=== PATIENT | female | born 1990 | race Caucasian/White ===

== ENCOUNTER → 2016-03-15 | Outpatient (CLI) | payer BC ==
[~2016-03-15] MED LIST: ALBINS/ INH; CYAN100020 PO; DOCU-94 PO; EPP3/2 IM; FERR324T PO; FEXO1TAB49 PO; FLUT0.15 NAE; JNLF153028 PO; MAGN400T6 PO; MULT-1028 PO; PANT40TA PO; VNTHFA/IN INH
[2016-03-15 10:04] LABS: ALT/SGPT 29 U/L (12-78); BLOOD UREA NITROGEN 9 mg/dl (7-18); BUN/CREATININE RATIO 9.3 (10-20); CALCIUM 8.9 mg/dl (8.5-10.1); CARBON DIOXIDE 29 mmol/L (21-32); CHLORIDE 105 mmol/L (98-107); GLUCOSE 74 mg/dl (70-99); POTASSIUM 3.5 mmol/L (3.5-5.1); SODIUM 143 mmol/L (136-145)
[2016-03-15 10:14] LABS: ALB/GLOB RATIO 1.3 (0.9-2); ALKALINE PHOSPHATASE 68 U/L (45-117); AST/SGOT 18 U/L (15-37)
[2016-03-21 02:16] LABS: ILGF1 Z SCORE FEMALE 1.2 SD (-2.0 - +2.0); INSULIN LIKE GROWTH FACTOR-I 313 ng/mL (83-456)
== END | disposition home or self-care (01) ==
LOC: C.LAB 08:09
PROVIDERS: ATTEND Internal Medicine Endocrinology, Diabetes & Metabolism
DX: E23.6 Other disorders of pituitary gland (principal); E83.51 Hypocalcemia

== ENCOUNTER → 2016-03-28 | Outpatient (CLI) | payer BC ==
--- NOTE | 2016-03-28 15:15 | DIAGNOSTIC IMAGING REPORT ---
THYROID ULTRASOUND HISTORY: E04.9 Goiter COMPARISON: None. FINDINGS: Right lobe: 5.3 x 1.8 x 1.4 cm. No nodules. Left lobe: 4.6 x 1.3 x 1.5 cm. No nodules. Isthmus: 2 mm in thickness. No nodules. IMPRESSION: Normal thyroid ultrasound. Electronically signed by: Octavio Gan M.D. 03/28/2016 3:13 PM Dictated Date/Time: 03/28/2016 3:13 PM
== END | disposition home or self-care (01) ==
LOC: C.ULTR 14:48
PROVIDERS: ATTEND Internal Medicine Endocrinology, Diabetes & Metabolism
DX: E04.9 Nontoxic goiter, unspecified (principal)

== ENCOUNTER → 2016-06-28 | Outpatient (CLI) | payer BC ==
[2016-06-28 10:38] LABS: PROLACTIN 12.46 ng/mL
[2016-06-28 10:39] LABS: THYROID STIMULATING HORMONE 1.19 uIu/ml (0.300-4.500)
[2016-07-03 22:06] LABS: ILGF1 Z SCORE FEMALE 0.7 SD (-2.0 - +2.0); INSULIN LIKE GROWTH FACTOR-I 254 ng/mL (83-456)
== END | disposition home or self-care (01) ==
LOC: C.LAB 08:14
PROVIDERS: ATTEND Internal Medicine Endocrinology, Diabetes & Metabolism
DX: G40.909 Epilepsy, unspecified, not intractable, without status epilepticus (principal); E23.6 Other disorders of pituitary gland

== ENCOUNTER → 2017-03-10 | Outpatient (CLI) | payer BC | END | disposition home or self-care (01) | LOC: C.PAPS 09:37 | PROVIDERS: ATTEND Obstetrics & Gynecology | DX: Z01.419 Encounter for gynecological examination (general) (routine) without abnormal findings (principal) ==

== ENCOUNTER → 2017-03-17 | Outpatient (CLI) | payer BC ==
--- NOTE | 2017-03-17 14:29 | MAMMOGRAPHY REPORT ---
ULTRASOUND OF BOTH BREASTS: 03/17/2017 CLINICAL HISTORY: 27-year-old woman presents after a recent clinical breast exam performed by her pro vider. She was noted to have bilateral lumpy texture on physical exam with possible masses. The pat roman initially presented to her [facility]HEATER [facility] provider with a complaint of intermittent left lateral breast tenderness that begins approximately 2 weeks before and continues after menses. No skin erythema, th ickening or nipple discharge. No family history of breast cancer. COMPARISON: No prior exams were available for comparison. FINDINGS: Real-time high-resolution sonographic evaluation was performed throughout each breast incl uding the retroareolar aspect of the breasts, and both axillae. No suspicious lymphadenopathy is teodoro ntified within the right or left axilla. The breast parenchymal echotexture is heterogeneousdense. In the 2:00 left breast, 1 cm from the ni pple, there is a parallel hypoechoic solid versus cystic mass without evidence of significant posteri or acoustic enhancement or posterior shadowing. This mass measures 4.1 x 3.0 x 5.3 mm and could repr esent a complicated cyst or solid mass such as a fibroadenoma. Given the benign sonographic features , a short interval follow-up targeted left breast ultrasound is recommended to ensure stability in 6 months. No other discrete solid or cystic mass is identified throughout the left breast on real-time scanning. There is slight differences in the echotexture in the 2:00 left breast, 4 cm from the nip ple in an area of tenderness described by the patient, but no focal or discrete mass is identified. This could simply represent a collapsing cyst or focal duct ectasia. In the 4:00 left breast, 3 cm f rom the nipple, the patient was also tender in this area with real-time ultrasound scanning, without evidence of a discrete solid or cystic mass. in the area of concern While scanning throughout the right breast, a benign intramammary lymph node measuring 5.7 mm is iden tified in the 9:00 axis, 3 cm from the nipple. No other discrete solid or cystic mass is seen. IMPRESSION: ACR-BI-RADS CATEGORY 3: PROBABLY BENIGN - FOLLOW-UP RECOMMENDED 1. There is an indeterminate parallel hypoechoic 5.3 mm mass in the 2:00 left breast, incidentally i dentified on ultrasound, that could represent a complicated cyst or benign solid mass such as a fibro adenoma. The patient is not symptomatic in this location. A short interval follow-up targeted left breast ultrasound is recommended to ensure stability in 6 months. 2. No suspicious targeted sonographic abnormality corresponding to the areas of pain in the 2:00 and 4:00 axes of the left breast, therefore continued clinical follow-up is recommended. 3. No sonographic evidence of malignancy in the right breast. 4. No suspicious right or left axillary lymphadenopathy. These results and recommendations were discussed with the patient at the time of the exam. She tenta tively scheduled a follow-up left breast ultrasound prior to leaving our department. Jacquie Muir M.D. ay/:03/17/2017 12:02:39 Machine Coil Assembler: Dr. Jacquie Muir, [facility] letter sent: Follow Up Recommended 3 BI-RADS Code: ACR-BI-RADS Category 3: Probably Benign
== END | disposition home or self-care (01) ==
LOC: C.MAMM 11:23
PROVIDERS: ATTEND Obstetrics & Gynecology
DX: N63.20 Unspecified lump in the left breast, unspecified quadrant (principal)

== ENCOUNTER 2019-08-31 01:43 | Inpatient (IN) ==
[2019-08-31] MEDS ORDERED: PENICILLIN G POTASSIUM 6 MU in DEXTROSE 5% 250 ML IV STA (02:27)
[2019-08-31] MEDS ORDERED: PENICILLIN G POTASSIUM 3 MU in DEXTROSE 5% 100 ML IV PRN (02:27)
[2019-08-31] MEDS ORDERED: OXYTOCIN 30 UNITS/500 ML BAG IV PRN ×2 (02:27→07:06)
[2019-08-31] MEDS: LACTATED RINGER'S 1,000 ML IV PRN ×3 (02:44→05:57)
[2019-08-31 03:01] LABS: Hematocrit (blood only) 40.4 % (37-47); Hemoglobin 13.5 g/dL (12.0-16.0); Mean Corpuscular Hemoglobin 31.3 pg (25-34); Mean Corpuscular Volume 93.7 fL (80-100); Mean Platelet Volume 11.4 fL (7.4-10.4); Platelet Count 175 K/uL (130-400); RDW Coefficient of Variation 13.3 % (11.5-14.5); RDW Standard Deviation 45.9 fL (36.4-46.3); Red Blood Count 4.31 M/uL (4.2-5.4); White Blood Count 19.99 K/uL (4.8-10.8)
[2019-08-31 03:09] LABS: Mean Corpuscular Hgb Conc 33.4 g/dL (32-36)
[2019-08-31] MEDS ORDERED: BUPIVACAINE 0.25% 30 ML VIAL ONE (03:31)
[2019-08-31] MEDS ORDERED: ePHEDrine sulfate 50 MG/ML AMP ONE (03:31)
[2019-08-31] MEDS ORDERED: fentaNYL citrate 100 MCG/2 ML VIAL ONE (03:31)
[2019-08-31] MEDS ORDERED: fentaNYL 2MCG/ML ROPIV 1.25MG/ML 100 ML BAG EPI ONE (03:32)
[2019-08-31] MEDS ORDERED: NALOXONE HCL 1 MG in SODIUM CHLORIDE 0.9% 1000ML 1,000 ML IV PRN (03:45)
[2019-08-31] MEDS ORDERED: ePHEDrine sulfate 50 MG/ML AMP IV PRN (03:45)
[2019-08-31] MEDS ORDERED: NALBUPHINE HCL INJ 10 MG/ML AMP IV PRN (03:45)
[2019-08-31] MEDS ORDERED: NALOXONE HCL 0.4 MG/1 ML VIAL/CARP IV PRN (03:45)
[2019-08-31] MEDS ORDERED: ONDANSETRON INJ 2 MG/ML 2 ML VIAL IV PRN (03:45)
[2019-08-31] MEDS ORDERED: fentaNYL 2MCG/ML ROPIV 1.25MG/ML 100 ML BAG EPI PRN (03:45)
[2019-08-31] MEDS ORDERED: DiphenhydrAMINE HCL 50 MG/ML VIAL IV PRN (03:45)
--- NOTE | 2019-08-31 03:53 | Anesthesiology Consultation ---
Date of Service August 31, 2019 Assessment & Plan (1) Encounter for pre-operative examination: Chart Review Chart Review: Acceptable Risk for Labor Epidural Consults Requested none ASA ASA2 Proposed Anesthesia Anesthesia Type: Labor Epidural Risk / Benefits Reviewed With: PT / POA / Parent / Guardian, Accepts Plan and Informed Consent Obtained History Height/Weight Height: 5 ft 4 in Weight: 74.843 kg Allergies Allergy/AdvReac Type Severity Reaction Status Date / Time morphine Allergy Severe HIVES - Verified 08/31/19 02:02 [id number] ADMISSION REQUIRING BENADRYL bee venom protein (honey bee) Allergy Unknown UKN Verified 08/31/19 02:02 gluten Allergy Unknown . Verified 08/31/19 02:02 hydrocodone Allergy Unknown HALLUCINATE Verified 08/31/19 02:02 Bee sting Allergy Hives Uncoded 08/31/19 02:02 Wheat Allergy gluten Uncoded 08/31/19 02:02 intolerance Medications Home Medications Medication Instructions Recorded Confirmed Last Taken albuterol sulfate 2 - 4 puff INHALATION Q4H PRN 08/12/18 08/31/19 Unknown docusate sodium 100 mg PO BID 08/31/19 08/31/19 08/30/19 ferrous sulfate 325 mg PO DAILY 08/31/19 08/31/19 08/30/19 fexofenadine-pseudoephedrine 1 tab PO QAM 08/31/19 08/31/19 08/30/19 [Dee-D 24 Hour] lamotrigine 200 mg PO DAILY 08/31/19 08/31/19 08/30/19 lamotrigine 450 mg PO DAILY 08/31/19 08/31/19 08/30/19 vit [id number] 1 tab PO DAILY 08/31/19 08/31/19 08/30/19 [ Vitamin] pyridoxine (vitamin B6) [Vitamin 25 mg PO DAILY 08/31/19 08/31/19 08/30/19 B-6] Active Medications Generic Name Dose Route Start Last Admin Trade Name Freq PRN Reason Stop Dose Admin Lactated Ringer's 1,000 mls @ 125 mls/hr 08/31/19 02:27 08/31/19 02:44 Lr IV 09/02/19 02:26 999 mls/hr .Q8H PRN Administration L&D Protocol Protocol Past Medical History Medical History Asthma Well controlled Chiari malformation type I S/p surgery in 2016- carries small cervical syrinx per neuro Epilepsy Well controlled on Lamictal per neurology note 07/11/19 GERD (gastroesophageal reflux disease) Aggrevated by but stable Gluten intolerance Migraine (Acute) Paroxysmal SVT (supraventricular tachycardia) Intermittent/stable. Followed with cardio in the past- follows PRN at this time. PCOS (polycystic ovarian syndrome) Exercise / Class Metabolic Activity II 4-5 Yardwork/Stairs/Walk up hill Past Family History Family History Father Asthma Thyroid cancer Grandfather Heart disease Grandmother Heart disease Denies family history of Colon cancer Ovarian cancer Breast cancer Past Surgical History Surgical History H/O brain surgery History of esophagogastroduodenoscopy (EGD) Hx of appendectomy [place] teeth removed Past Anesthesia History No Hx of Anesthesia Complications and No Family Hx of Anesthesia Complications History of PONV No Hx of PONV and No Hx of Motion Sickness Social History Smoking Status: Never smoker Hx Alcohol Use: No Hx Substance Use: No substance use type: does not use Physical Exam Vital Signs Last Vital Signs Temp 99.0 F 08/31/19 02:12 Pulse 96 H 08/31/19 03:50 Resp 18 08/31/19 02:12 BP 120/58 L 08/31/19 02:51 Pulse Ox 100 08/31/19 03:50 ENMT Mouth: no dentition abnormality Thyromental Distance: > or= 3.5 Finger Breadths Mallampati Class: II Neck normal visual inspection Respiratory normal respiratory effort Auscultation: lungs clear to auscultation bilaterally Cardiovascular Rate/Rhythm: regular rate and regular rhythm Testing Laboratory Results 08/31/19 02:38
--- NOTE | 2019-08-31 06:05 | History & Physical Report ---
Date of Service August 31, 2019 Assessment & Plan (1) Normal labor: Patient admitted in active labor with spontaneous rupture of membranes. Should be noted she has an Arnold-Chiari moderate malformation however she is okay to have an epidural she is not okay to have a spinal per Dr. Kenyon's notes During her course she has progressed from 2 cm to 4 cm requested epidural post epidural she started to have some significant and recurrent variable decelerations at that time they were nonresponsive to oxygen fluid bolus and repositioning. At that time I initiated an amnioinfusion running normal saline at 200 cc/h and there seemed to be some improvement with this and knee-chest position I cautioned the patient the possibility of section if the variables became recurrent and nonresponsive to resuscitative measures patient seems to understand this and accept this We discussed risks of as well if this was needed section. The patient was counseled to the nature of the procedure including alternatives such as labor. Risks were discussed including bleeding infection injury to bowel bladder ureter vessels and even baby. Deep Vein thrombosis, pulmonary embolus discussed. Breakdown of incision reviewed. Deep vein thrombosis pulmonary embolus hernia and failure of the incision to heal were discussed Patient verbalized understanding of this and was given ample time to ask questions Admission and Anticipated Discharge Date Admission Date: August 31, 2019 History of Present Illness Primary Care Provider: Alex Shukla MD Allergies Allergy/AdvReac Type Severity Reaction Status Date / Time morphine Allergy Severe HIVES - Verified 08/31/19 02:02 [id number] ADMISSION REQUIRING BENADRYL bee venom protein (honey bee) Allergy Unknown UKN Verified 08/31/19 02:02 gluten Allergy Unknown . Verified 08/31/19 02:02 hydrocodone Allergy Unknown HALLUCINATE Verified 08/31/19 02:02 Bee sting Allergy Hives Uncoded 08/31/19 02:02 Wheat Allergy gluten Uncoded 08/31/19 02:02 intolerance Home Medications Home Medications Medication Instructions Recorded Confirmed Type albuterol sulfate 2 - 4 puff INHALATION Q4H PRN 08/12/18 08/31/19 History docusate sodium 100 mg PO BID 08/31/19 08/31/19 History ferrous sulfate 325 mg PO DAILY 08/31/19 08/31/19 History fexofenadine-pseudoephedrine 1 tab PO QAM 08/31/19 08/31/19 History [Dee-D 24 Hour] lamotrigine 200 mg PO DAILY 08/31/19 08/31/19 History lamotrigine 450 mg PO DAILY 08/31/19 08/31/19 History vit no.[id number] 1 tab PO DAILY 08/31/19 08/31/19 History [ Vitamin] pyridoxine (vitamin B6) [Vitamin 25 mg PO DAILY 08/31/19 08/31/19 History B-6] Patient History Medical History Asthma Well controlled Chiari malformation type I S/p surgery in 2016- carries small cervical syrinx per neuro Epilepsy Well controlled on Lamictal per neurology note 07/11/19 GERD (gastroesophageal reflux disease) Aggrevated by but stable Gluten intolerance Migraine (Acute) Paroxysmal SVT (supraventricular tachycardia) Intermittent/stable. Followed with cardio in the past- follows PRN at this time. PCOS (polycystic ovarian syndrome) Surgical History H/O brain surgery History of esophagogastroduodenoscopy (EGD) Hx of appendectomy [place] teeth removed Family History Father Asthma Thyroid cancer Grandfather Heart disease Grandmother Heart disease Denies family history of Colon cancer Ovarian cancer Breast cancer Social History Preferred Language: Turkish Communication Ability: Effective Beliefs That Will Affect Care: Taoist Taoist Beliefs: Christianity marital status: marital status details: Manny (28) [phone] Current Living Situation: Family Current Living Situation Comment: lives with spouse, no pets current occupational status: employed current occupation: [employer] Other Information That Helps Us Care for You: No Feels Safe at Home: Yes Safety Concerns: Feels Safe At This Time Smoking Status: Never smoker Hx Alcohol Use: No Hx Substance Use: No Physical Exam Constitutional: WD/WN, vitals as above Respiratory: normal respiratory effort, lungs clear to auscultation Cardiovascular: RRR, no murmur, no edema Genitourinary: Manual OB Exam: + cervical dilation 4 cm, + cervical effacement 70% and + station -1 Results & Data ([facility]) Vital Signs (Past 12 Hours) Vital Signs Temp Pulse Resp BP Pulse Ox 08/31/19 06:00 92 H 98 08/31/19 05:55 93 H 100 08/31/19 05:50 102 H 98 08/31/19 05:46 90 128/63 08/31/19 05:45 89 100 08/31/19 05:40 80 100 08/31/19 05:36 88 113/59 L 08/31/19 05:35 85 99 08/31/19 05:30 77 100 08/31/19 05:27 80 105/55 L 08/31/19 05:25 89 100 08/31/19 05:20 90 99 08/31/19 05:16 82 120/64 08/31/19 05:15 87 100 08/31/19 05:10 88 99 08/31/19 05:07 86 126/67 08/31/19 05:05 91 H 99 08/31/19 05:00 73 16 99 08/31/19 04:57 81 127/58 L 08/31/19 04:55 79 98 08/31/19 04:50 80 96 08/31/19 04:47 88 133/67 08/31/19 04:45 86 93 08/31/19 04:40 81 95 08/31/19 04:37 82 94 08/31/19 04:36 86 130/70 08/31/19 04:35 85 97 08/31/19 04:30 91 H 96 08/31/19 04:25 77 96 08/31/19 04:24 84 124/55 L 08/31/19 04:21 81 124/60 94 08/31/19 04:20 83 94 08/31/19 04:18 81 126/58 L 08/31/19 04:15 75 132/59 L 98 08/31/19 04:12 77 120/60 08/31/19 04:11 84 115/53 L 08/31/19 04:10 88 98 08/31/19 04:09 86 126/67 08/31/19 04:07 96 H 126/69 08/31/19 04:05 86 126/64 98 08/31/19 04:00 99.0 F 92 H 16 98 08/31/19 03:55 84 98 08/31/19 03:50 96 H 100 08/31/19 03:35 72 97 08/31/19 03:30 82 97 08/31/19 03:25 73 100 08/31/19 03:20 78 100 08/31/19 03:15 70 99 08/31/19 03:10 73 98 08/31/19 03:05 72 100 08/31/19 03:00 73 100 08/31/19 02:55 75 100 08/31/19 02:51 73 120/58 L 08/31/19 02:50 87 100 08/31/19 02:15 75 116/67 08/31/19 02:12 99.0 F 18 Coding Level of Care Code None Diagnoses Normal labor O80; Z37.9
--- NOTE | 2019-08-31 06:21 | Obstetrical Progress Note ---
Date of Service August 31, 2019 Assessment & Plan (1) state: cont current care Subjective Ambulation: ambulating normally Voiding: no voiding problems Diet Tolerance:: regular diet Lochia:: Small Feeding Type:: breast feeding Current Pain Level(1-10): 2 Physical Exam Constitutional WD/WN, vitals as above Respiratory normal respiratory effort, lungs clear to auscultation Cardiovascular RRR, no murmur, no edema Results & Data ([facility]) Vital Signs (Past 12 Hours) Vital Signs Temp Pulse Resp BP Pulse Ox 08/31/19 06:18 88 94/50 L 08/31/19 06:15 93 H 99 08/31/19 06:10 84 99 08/31/19 06:05 87 99 08/31/19 06:00 92 H 98 08/31/19 05:55 93 H 100 08/31/19 05:50 102 H 98 08/31/19 05:46 90 128/63 08/31/19 05:45 89 100 08/31/19 05:40 80 100 08/31/19 05:36 88 113/59 L 08/31/19 05:35 85 99 08/31/19 05:30 77 100 08/31/19 05:27 80 105/55 L 08/31/19 05:25 89 100 08/31/19 05:20 90 99 08/31/19 05:16 82 120/64 08/31/19 05:15 87 100 08/31/19 05:10 88 99 08/31/19 05:07 86 126/67 08/31/19 05:05 91 H 99 08/31/19 05:00 73 16 99 08/31/19 04:57 81 127/58 L 08/31/19 04:55 79 98 08/31/19 04:50 80 96 08/31/19 04:47 88 133/67 08/31/19 04:45 86 93 08/31/19 04:40 81 95 08/31/19 04:37 82 94 08/31/19 04:36 86 130/70 08/31/19 04:35 85 97 08/31/19 04:30 91 H 96 08/31/19 04:25 77 96 08/31/19 04:24 84 124/55 L 08/31/19 04:21 81 124/60 94 08/31/19 04:20 83 94 08/31/19 04:18 81 126/58 L 08/31/19 04:15 75 132/59 L 98 08/31/19 04:12 77 120/60 08/31/19 04:11 84 115/53 L 08/31/19 04:10 88 98 08/31/19 04:09 86 126/67 08/31/19 04:07 96 H 126/69 08/31/19 04:05 86 126/64 98 08/31/19 04:00 99.0 F 92 H 16 98 08/31/19 03:55 84 98 08/31/19 03:50 96 H 100 08/31/19 03:35 72 97 08/31/19 03:30 82 97 08/31/19 03:25 73 100 08/31/19 03:20 78 100 08/31/19 03:15 70 99 08/31/19 03:10 73 98 08/31/19 03:05 72 100 08/31/19 03:00 73 100 08/31/19 02:55 75 100 08/31/19 02:51 73 120/58 L 08/31/19 02:50 87 100 08/31/19 02:15 75 116/67 08/31/19 02:12 99.0 F 18
--- NOTE | 2019-08-31 06:49 | Delivery Summary ---
Vaginal Delivery Summary Date of Service August 31, 2019 Vaginal Delivery Summary Spontaneous vaginal delivery note the patient had recurrent variable decelerations did respond positively to a amnioinfusion her tracing then worsened and I assessed her she went from 4 to 9 cmShe then rapidly progressed to fully dilated at this stage I discussed possibility of vacuum or episiotomy she was making such good progress made a small episiotomy she was tearing already she agreed to this baby was delivered mouth and the nares were suctioned the baby had a triple nuchal cord fluid was clear I clamped the cord and then was able to unwind it from the baby's neck and baby was delivered with gentle traction baby was vigorous cord gases obtained cord blood obtained placenta removed with gentle traction IV Pitocin started small episiotomy pair with 3-0 Vicryl sponge and instrument counts correct estimated blood loss 200 mL
[2019-08-31] MEDS ORDERED: DIPHTHERIA/TETANUS/PERTUSSIS 0.5 ML SYR/VIAL IM ONE (07:06)
[2019-08-31] MEDS ORDERED: BENZOCAINE 20% AER SPR 82.5 GM CAN EXT PRN (07:06)
[2019-08-31] MEDS ORDERED: HYDROCORTISONE ACETATE 25 MG SUPP PR PRN (07:06)
[2019-08-31] MEDS ORDERED: SUPERCREAM 0.870% 15 GM JAR EXT PRN (07:06)
[2019-08-31 07:12] LABS: Base Excess Cord Arterial Bld -2.8 mEq/L (-9-1.8); CO2 Cord Arterial Blood 68 mmHg (39.1-73.5); HCO3 Cord Arterial Blood 27 mmol/L (19.7-28.5); PO2 Cord Arterial Blood 20 mmHg (4.1-31.7); pH Cord Arterial Blood 7.22 (7.1-7.38)
[2019-08-31 07:13] LABS: Base Excess Cord Venous Blood -2.4 mEq/L (-7.7-1.9); Cord Venous Blood HCO3 25 mmol/L (18.4-26.8); Cord Venous Blood PCO2 53 mmHg (30.4-57.2); Cord Venous Blood PO2 30 mmHg (14.1-43.3); Cord Venous Blood pH 7.29 (7.20-7.44); Oxygen Sat Cord Arterial Blood < 60.0 % (<60)
[2019-08-31 07:14] LABS: O2 Saturation Cord Venous Bld < 60.0 % (<68)
[2019-08-31] MEDS: lamoTRIgine 100 MG TAB PO SCH (07:30)
[2019-08-31] MEDS ORDERED: PRENATAL VITAMIN 1 TAB PO SCH (09:00)
--- NOTE | 2019-08-31 09:08 | Anesthesia Procedure Note ---
Date of Service August 31, 2019 Anesthesia Post Epidural Note Vital Signs Vital Signs: Temp Pulse Resp BP Pulse Ox 37.3 C 101 H 16 115/59 L 96 08/31/19 07:00 08/31/19 08:47 08/31/19 07:00 08/31/19 08:47 08/31/19 06:55 Pain Intensity Abdomen: Pain Intensity: 0 Notes Mental Status: alert / awake / arousable and participated in evaluation Nausea / Vomiting: adequately controlled Pain: adequately controlled Airway Patency, RR, SpO2: stable & adequate BP & HR: stable & adequate Hydration State: stable & adequate Neuraxial Anesthesia: was administered and sensory block is resolving Anesthetic Complications: no major complications apparent and Pt Satisfied with anesthetic care Epidural: Removed without complications and With tip intact
[2019-08-31] MEDS: ACETAMINOPHEN 325 MG TAB PO PRN ×2 (09:35→16:07)
[2019-08-31] MEDS: PRENATAL VITAMIN 1 TAB PO SCH (09:38)
[2019-08-31] MEDS: DOCUSATE SODIUM 100 MG CAP PO SCH ×2 (09:38→20:22)
[2019-08-31] MEDS ORDERED: Nursing to Pharmacy Communication SCH (09:45)
[2019-08-31] MEDS: PYRIDOXINE HCL 50 MG TAB PO SCH (09:49)
[2019-08-31] MEDS: FEXOFENADINE 60MG/PSEUDOEPHEDRINE 120MG TAB PO SCH (09:49)
[2019-08-31] MEDS ORDERED: OXYCODONE/ACETAMINOPHEN 5mg/325mg TAB PO PRN (17:46)
[2019-08-31] MEDS: IBUPROFEN 600 MG TAB PO PRN (17:54)
--- NOTE | 2019-08-31 17:54 | Communication Note ---
Date of Service: August 31, 2019 asked by nursing about pain meds for pt who insists she was told by Dr. Kenyon her neurologist that she cannot take motrin due to decreasing effectiveness of l amictal. I had never heard about that issue and confirmed with pharmacist who also has never heard of that interaction. offered her to use percocet prn if the tylenol alone is not helping her as she states, and then advised her via nurse to call Dr. Kenyon office in am to confirm this issue with her lamictal and use of motrin.
[2019-08-31] MEDS ORDERED: lamoTRIgine 100 MG TAB PO SCH ×2 (19:00→21:00)
[2019-09-01 06:06] LABS: Hemoglobin 12.8 g/dL (12.0-16.0); Mean Corpuscular Hemoglobin 31.2 pg (25-34); Mean Corpuscular Volume 97.6 fL (80-100); Mean Platelet Volume 11.3 fL (7.4-10.4); Platelet Count 173 K/uL (130-400); RDW Coefficient of Variation 13.7 % (11.5-14.5); RDW Standard Deviation 49.1 fL (36.4-46.3); White Blood Count 17.53 K/uL (4.8-10.8)
[2019-09-01] MEDS: IBUPROFEN 600 MG TAB PO PRN ×2 (06:47→11:41)
[2019-09-01] MEDS: ACETAMINOPHEN 325 MG TAB PO PRN (06:48)
[2019-09-01] MEDS: lamoTRIgine 100 MG TAB PO SCH (06:50)
--- NOTE | 2019-09-01 07:18 | Obstetrical Progress Note ---
Date of Service September 01, 2019 Assessment & Plan (1) state: 29 yo PPD2 s/p requiring amnioinfusion, hx arnold chiari malformation type 1. - pain well controlled - bottle feeding - uterine cramping, lochia slowing - discharge instructions discussed, questions answered - d/c after baby's circ later today (2) Group B Streptococcus carrier, antepartum: (3) Chiari malformation type I: Admission and Anticipated Discharge Date Admission Date: August 31, 2019 Supervising Physician Co-Signing Physician Notes Resident Physician Supervision Note: I was present with Dr. Hastings during the history and exam. I discussed the case with the resident and agree with the findings and plan as documented in the no te. Any exceptions or clarifications are listed here: Doing well, denies complaints. Bottle feeding. Would like to go home today. VSS, Abd soft ff 2 down nt, Ext nt calves. Plan d/c home, instructions reviewed. f/u 6 wk pp check. Documented By: Anamika Redmond MD, FACOG Subjective No complaints this morning. pain well controlled with motrin and tylenol. lochia decreased. Review of Systems Constitutional: + fatigue; no fever and no chills Respiratory: no cough and no dyspnea Cardiovascular: no chest pain, no syncope, no edema and no calf pain Gastrointestinal: + cramping; no abdominal pain, no nausea, no vomiting, no constipation and no diarrhea/loose stools Genitourinary: no dysuria and no difficulty urinating Neurologic: no headache(s) Physical Exam Constitutional: well developed and well nourished Respiratory: normal respiratory effort; no respiratory distress, no labored breathing and no cough Auscultation: no crackles, no rales, no rhonchi and no wheezes Cardiovascular: Rate/Rhythm: regular rate and regular rhythm Heart Sounds: no gallop, no murmur and no cardiac rub Extremities: no pedal edema Gastrointestinal (Abdomen): Inspection/Auscultation: normal bowel sounds; abdomen not distended Percussion/Palpation: abdomen soft; no guarding Musculoskeletal: no tenderness to palpation of calves bilaterally Genitourinary: Uterus small and firm, palpable on left abdomen below level of umbilicus, no tenderness to palpation. Results & Data ([facility]) Vital Signs (Past 12 Hours) Vital Signs Temp Pulse Resp BP 06/25/20 04:30 37.0 C 77 18 110/70 08/31/19 23:30 36.7 C 68 18 110/61 08/31/19 20:10 36.8 C 92 H 16 116/68 Laboratory Results WBC 17.53 K/uL (4.8-10.8) H 09/01/19 05:52 RBC 4.10 M/uL (4.2-5.4) L 09/01/19 05:52 Hgb 12.8 g/dL (12.0-16.0) 09/01/19 05:52 Hct 40.0 % (37-47) 09/01/19 05:52 MCV 97.6 fL (80-100) 09/01/19 05:52 MCH 31.2 pg (25-34) 09/01/19 05:52 MCHC 32.0 g/dL (32-36) 09/01/19 05:52 RDW Std Deviation 49.1 fL (36.4-46.3) H 09/01/19 05:52 RDW Coeff of Nella 13.7 % (11.5-14.5) 09/01/19 05:52 Plt Count 173 K/uL (130-400) 09/01/19 05:52 MPV 11.3 fL (7.4-10.4) H 09/01/19 05:52 Cord ABG pH 7.22 (7.1-7.38) 08/31/19 06:31 Cord ABG pCO2 68 mmHg (39.1-73.5) 08/31/19 06:31 Cord ABG pO2 20 mmHg (4.1-31.7) 08/31/19 06:31 Cord ABG HCO3 27 mmol/L (19.7-28.5) 08/31/19 06:31 Cord ABG Base Excess -2.8 mEq/L (-9-1.8) 08/31/19 06:31 Cord ABG O2 Sat < 60.0 % (<60) 08/31/19 06:31 Cord VBG pH 7.29 (7.20-7.44) 08/31/19 06:31 Cord VBG pCO2 53 mmHg (30.4-57.2) 08/31/19 06:31 Cord VBG pO2 30 mmHg (14.1-43.3) 08/31/19 06:31 Cord VBG HCO3 25 mmol/L (18.4-26.8) 08/31/19 06:31 Cord VBG Base Excess -2.4 mEq/L (-7.7-1.9) 08/31/19 06:31 Cord VBG O2 Sat < 60.0 % (<68) 08/31/19 06:31 Barometric Pressure 727.7 mm/Hg 08/31/19 06:31 Barometric Pressure 727.7 mm/Hg 08/31/19 06:31 Blood Gas Comments [facility]ANNER 08/31/19 06:31 Blood Gas Comments [facility] 08/31/19 06:31 Resident Activity Tracking Resident Involvement: Resident Care Provided Care Provided: OB Delivery
[2019-09-01] MEDS: PRENATAL VITAMIN 1 TAB PO SCH (08:51)
[2019-09-01] MEDS: DOCUSATE SODIUM 100 MG CAP PO SCH (08:51)
[2019-09-01] MEDS: FEXOFENADINE 60MG/PSEUDOEPHEDRINE 120MG TAB PO SCH (11:42)
[2019-09-01] MEDS: PYRIDOXINE HCL 50 MG TAB PO SCH (11:42)
[2019-09-01] MEDS ORDERED: bisacodyL 5 MG TABEC PO SCH (20:00)
[2019-09-02] MEDS ORDERED: bisacodyL 10 MG SUPP PR PRN (09:00)
== END 2019-09-01 13:35 | disposition home or self-care (01) | DRG 805 ==
LOC: OPB 01:43 → 4S1 01:44 → 4S2 09:50

== ENCOUNTER 2022-09-11 02:07 | Inpatient (IN) ==
[2022-09-11] MEDS ORDERED: LIDOCAINE 1% LOCAL 20 ML VIAL INFIL PRN (02:58)
[2022-09-11] MEDS ORDERED: OXYTOCIN 30 UNITS/500 ML BAG IV PRN ×3 (02:58→17:40)
[2022-09-11] MEDS ORDERED: PENICILLIN G POTASSIUM 6 MU in DEXTROSE 5% 250 ML IV STA (03:10)
[2022-09-11] MEDS: LACTATED RINGER'S 1,000 ML IV PRN ×3 (03:38→10:04)
[2022-09-11 03:42] LABS: Hematocrit (blood only) 39.6 % (37.0-47.0); Hemoglobin 13.6 g/dl (12.0-16.0); Mean Corpuscular Hgb Conc 34.3 g/dL (32.0-36.0); Mean Corpuscular Volume 93.2 fL (80.0-100.0); Mean Platelet Volume 10.9 fL (9.4-12.4); Platelet Count 172 K/uL (130-400); RDW Coefficient of Variation 12.7 % (11.5-14.5); RDW Standard Deviation 43.3 fL (36.4-46.3); Red Blood Count 4.25 M/uL (4.20-5.40)
[2022-09-11] MEDS ORDERED: fentaNYL citrate PF 100 MCG/2 ML VIAL ONE (04:00)
[2022-09-11] MEDS ORDERED: ePHEDrine sulfate 50 MG/ML AMP ONE (04:00)
[2022-09-11] MEDS ORDERED: fentaNYL 2MCG/ML ROPIVACAINE 1.25MG/ML 100 ML BAG EPI ONE (04:01)
[2022-09-11] MEDS ORDERED: SODIUM CHLORIDE 0.9% PF INJ 10 ML VIAL ONE (04:01)
[2022-09-11] MEDS ORDERED: LIDOCAINE 2%/EPINEPHRINE 1:200,000 20 ML PF ONE (04:01)
[2022-09-11] MEDS ORDERED: BUPIVACAINE 0.25% PF 30 ML VIAL ONE (04:01)
[2022-09-11] MEDS ORDERED: ePHEDrine sulfate 50 MG/ML AMP IV PRN (04:10)
[2022-09-11] MEDS ORDERED: BUPIVACAINE 0.25% PF 30 ML VIAL EPI PRN (04:10)
[2022-09-11] MEDS ORDERED: LIDOCAINE 2% MPF LOCAL 5 ML VIAL EPI PRN (04:10)
[2022-09-11] MEDS ORDERED: fentaNYL citrate PF 100 MCG/2 ML VIAL EPI STA (04:10)
[2022-09-11] MEDS ORDERED: SODIUM CHLORIDE 0.9% PF INJ 10 ML VIAL EPI PRN (04:10)
[2022-09-11] MEDS ORDERED: diphenhydrAMINE 50 MG/ML VIAL IV PRN (04:10)
[2022-09-11] MEDS ORDERED: fentaNYL 2MCG/ML ROPIVACAINE 1.25MG/ML 100 ML BAG EPI PRN (04:10)
[2022-09-11] MEDS ORDERED: NALBUPHINE HCL INJ 10 MG/ML AMP IV PRN (04:10)
[2022-09-11] MEDS ORDERED: NALOXONE HCL 1 MG in SODIUM CHLORIDE 0.9% 1000ML 1,000 ML IV PRN (04:10)
[2022-09-11] MEDS ORDERED: SODIUM CHLORIDE 0.9% PF INJ 10 ML VIAL EPI STA (04:10)
[2022-09-11] MEDS ORDERED: LIDOCAINE 2%/EPINEPHRINE 1:200,000 20 ML PF EPI STA (04:10)
[2022-09-11] MEDS ORDERED: fentaNYL citrate PF 100 MCG/2 ML VIAL EPI PRN (04:10)
[2022-09-11] MEDS ORDERED: ROPIVACAINE 0.5% PF 5 MG/ML 20 ML VIAL EPI PRN (04:10)
[2022-09-11] MEDS ORDERED: BUPIVACAINE 0.25% PF 30 ML VIAL EPI STA (04:10)
[2022-09-11] MEDS ORDERED: NALOXONE HCL 0.4 MG/1 ML VIAL/CARP IV PRN (04:10)
--- NOTE | 2022-09-11 04:10 | Anesthesiology Consultation ---
Date of Service September 11, 2022 Assessment & Plan (1) Encounter for pre-operative examination: Chart Review Chart Review: Patient NOT seen in Pre Admission Testing and Acceptable Risk for Labor Epidural Consults Requested none History Height/Weight Height: 5 ft 4 in Weight: 74.843 kg Allergies Allergy/AdvReac Type Severity Reaction Status Date / Time morphine Allergy Severe HIVES - Verified 09/05/22 14:20 [id number] ADMISSION REQUIRING BENADRYL bee venom protein (honey bee) Allergy Unknown UKN Verified 09/05/22 14:20 gluten Allergy Unknown . Verified 09/05/22 14:20 hydrocodone Allergy Unknown HALLUCINATE Verified 09/05/22 14:20 Medications Home Medications Medication Instructions Recorded Confirmed Last Taken ferrous sulfate 325 mg (65 mg 325 mg PO DAILY 08/31/19 09/11/22 09/10/22 19:00 iron) tablet vits no.124-ferrous fum 1 tab PO DAILY 08/31/19 09/11/22 09/10/22 19:00 27 mg iron-folic acid 800 mcg tablet ( Vitamin) pyridoxine (vitamin B6) 25 mg 25 mg PO DAILY 08/31/19 09/11/22 09/10/22 19:00 tablet (Vitamin B-6) magnesium PO 10/03/19 09/05/22 09/10/22 19:00 docusate sodium [Colace Clear] PO 10/12/19 09/05/22 09/10/22 21:00 ipratropium 0.5 mg-albuterol 3 mg 3 ml inhalation BID PRN shortness 03/06/21 09/11/22 Unknown (2.5 mg base)/3 mL nebulization of breath or wheezing #15 mL soln epinephrine 0.3 mg/0.3 mL 0.3 mg (0.3 mL) subcut UD #2 ea 09/06/21 09/11/22 Unknown injection, auto-injector calcium carbonate [Tums] PO PRN heartburn 01/27/22 09/05/22 Unknown lidocaine [Aspercreme (lidocaine)] topical 01/27/22 09/05/22 09/10/22 09:00 ondansetron HCl 4 mg tablet 4 mg PO Q6H PRN nausea and 03/07/22 09/11/22 Unknown vomiting #30 tabs inulin [Fiber Gummies] PO 04/25/22 09/05/22 Unknown lamotrigine 150 mg tablet 150 mg PO .COMPLEX #450 tabs 05/19/22 09/11/22 09/10/22 19:00 hydrocortisone 2.5 % topical cream 1 applic DE DAILY PRN hemorrhoids 06/23/22 09/11/22 Unknown with perineal applicator #30 grams (Anusol-HC) albuterol sulfate 90 mcg/actuation 2 - 4 puff inhalation Q4H PRN 06/24/2208/29 Unknown aerosol inhaler Shortness Of Breath Or Wheezing #18 grams hydrocortisone acetate 25 mg 25 mg DE DAILY hemmoroids #24 ea 06/24/22 09/11/22 Unknown rectal suppository (Anusol-HC) loratadine 10 mg tablet (Claritin) 10 mg PO DAILY 07/18/22 09/11/22 09/10/22 09:00 Active Medications Generic Name Dose Route Start Last Admin Trade Name Freq PRN Reason Stop Dose Admin Lactated Ringer's 1,000 mls @ 125 mls/hr 09/11/22 02:58 09/11/22 03:38 Lr IV 09/13/22 02:57 999 mls/hr .Q8H PRN Administration L&D Protocol Protocol Past Medical History Medical History Asthma Well controlled Chiari malformation type I S/p surgery in 2016- carries small cervical syrinx per neuro Epilepsy Well controlled on Lamictal per neurology note 07/11/19 GERD (gastroesophageal reflux disease) Aggrevated by but stable Gluten intolerance History of chicken pox Migraine Paroxysmal SVT (supraventricular tachycardia) Intermittent/stable. Followed with cardio in the past- follows PRN at this time. PCOS (polycystic ovarian syndrome) Past Family History Family History Father Asthma Thyroid cancer Grandfather Heart disease Grandmother Heart disease Denies family history of Colon cancer Ovarian cancer Breast cancer Past Surgical History Surgical History H/O brain surgery History of esophagogastroduodenoscopy (EGD) Hx of appendectomy [place] teeth removed Social History Smoking Status: Never smoker Do You Dip or Chew Tobacco: No Hx Alcohol Use: No Hx Substance Use: No substance use type: does not use Physical Exam Vital Signs Last Vital Signs Temp 98.2 F 09/11/22 02:36 Pulse 72 09/11/22 04:04 Resp 18 09/11/22 03:37 BP 105/60 09/11/22 03:41 Pulse Ox 100 09/11/22 04:04 Testing Laboratory Results 09/11/22 03:18
[2022-09-11] MEDS ORDERED: ONDANSETRON INJ 2 MG/ML 2 ML VIAL IV STA (06:50)
[2022-09-11] MEDS: PENICILLIN G POTASSIUM 3 MU in DEXTROSE 5% 100 ML IV PRN ×3 (07:26→15:24)
--- NOTE | 2022-09-11 07:53 | History & Physical Report ---
Date of Service September 11, 2022 Assessment & Plan (1) Group beta Strep positive: Plan: admit. epidural, PCN Admission and Anticipated Discharge Date Admission Date: September 11, 2022 History of Present Illness Primary Care Provider: Alex Shukla MD Current Estimate 09/12/22 LMP (Certain) 39w 5d LMP: 12/06/21 : 2 Full term: 1 Premature: 0 Total Number of Induced Abortions: 0 Total Number of Spontaneous Abortions: 0 Ectopics: 0 Multiple births: 0 Number of Living Children: 1 and Delivery Plans [id number]-Rf. Roy - Lamictal level check through Neuro Arnold Chiari Malformation Type I patient seen by anesthesia with her first got epidural, no issues. has not had any covid vaccine. GBS positive urine-treat in labor IOL Post-Dates 09/16 Protocols Options for genetic testing discussed with the patient including declining testing, screening tests (first trimester screen, cfDNA, Quad screen) and invasive testing that would give a definitive answer. Discussed that a screening test gives a high or low risk probability of a baby being affected by certain chromosomal abnormalities. If there is a positive screen, invasive testing would be recommended for definitive diagnosis Allergies Allergy/AdvReac Type Severity Reaction Status Date / Time morphine Allergy Severe HIVES - Verified 09/05/22 14:20 [id number] ADMISSION REQUIRING BENADRYL bee venom protein (honey bee) Allergy Unknown UKN Verified 09/05/22 14:20 gluten Allergy Unknown . Verified 09/05/22 14:20 hydrocodone Allergy Unknown HALLUCINATE Verified 09/05/22 14:20 Home Medications Medication Instructions Recorded Confirmed Type ferrous sulfate 325 mg (65 mg 325 mg PO DAILY 08/31/19 09/11/22 History iron) tablet vits no.124-ferrous fum 1 tab PO DAILY 08/31/19 09/11/22 History 27 mg iron-folic acid 800 mcg tablet ( Vitamin) pyridoxine (vitamin B6) 25 mg 25 mg PO DAILY 08/31/19 09/11/22 History tablet (Vitamin B-6) magnesium PO 10/03/19 09/05/22 History docusate sodium [Colace Clear] PO 10/12/19 09/05/22 History ipratropium 0.5 mg-albuterol 3 mg 3 ml inhalation BID PRN shortness 03/06/21 09/11/22 Rx (2.5 mg base)/3 mL nebulization of breath or wheezing #15 mL soln epinephrine 0.3 mg/0.3 mL 0.3 mg (0.3 mL) subcut UD #2 ea 09/06/21 09/11/22 Rx injection, auto-injector calcium carbonate [Tums] PO PRN heartburn 01/27/22 09/05/22 History lidocaine [Aspercreme (lidocaine)] topical 01/27/22 09/05/22 History ondansetron HCl 4 mg tablet 4 mg PO Q6H PRN nausea and 03/07/22 09/11/22 Rx vomiting #30 tabs inulin [Fiber Gummies] PO 04/25/22 09/05/22 History lamotrigine 150 mg tablet 150 mg PO .COMPLEX #450 tabs 05/19/22 09/11/22 Rx hydrocortisone 2.5 % topical cream 1 applic ID DAILY PRN hemorrhoids 06/23/22 09/11/22 Rx with perineal applicator #30 grams (Anusol-HC) albuterol sulfate 90 mcg/actuation 2 - 4 puff inhalation Q4H PRN 06/24/22 0 09/11/22 Rx aerosol inhaler Shortness Of Breath Or Wheezing #18 grams hydrocortisone acetate 25 mg 25 mg ID DAILY hemmoroids #24 ea 06/24/22 09/11/22 Rx rectal suppository (Anusol-HC) loratadine 10 mg tablet (Claritin) 10 mg PO DAILY 07/18/22 09/11/22 History Patient History Medical History Asthma Well controlled Chiari malformation type I S/p surgery in 2016- carries small cervical syrinx per neuro Epilepsy Well controlled on Lamictal per neurology note 07/11/19 GERD (gastroesophageal reflux disease) Aggrevated by but stable Gluten intolerance History of chicken pox Migraine Paroxysmal SVT (supraventricular tachycardia) Intermittent/stable. Followed with cardio in the past- follows PRN at this time. PCOS (polycystic ovarian syndrome) Surgical History H/O brain surgery History of esophagogastroduodenoscopy (EGD) Hx of appendectomy [place] teeth removed Family History Father Asthma Thyroid cancer Grandfather Heart disease Grandmother Heart disease Denies family history of Colon cancer Ovarian cancer Breast cancer Social History Smoking Status: Never smoker Do You Dip or Chew Tobacco: No; Hx Alcohol Use: No Hx Substance Use: No Preferred Language: Croatian Communication Ability: Effective [employer] Required: No Beliefs That Will Affect Care: None marital status: marital status details: Manny Quiroga (31) [phone] Current Living Situation: Spouse and Family Current Living Situation Comment: lives with spouse, no pets current occupational status: unemployed current occupation: homemaker Other Information That Helps Us Care for You: No Feels Safe at Home: Yes Safety Concerns: Feels Safe At This Time Assistive Devices: None Review of Systems as per Subjective / HPI Physical Exam Constitutional: WD/WN, vitals as above well developed and well nourished Respiratory: normal respiratory effort, lungs clear to auscultation normal respiratory effort Cardiovascular: RRR, no murmur, no edema Gastrointestinal (Abdomen): normal bowel sounds, soft, nontender, no hepatosplenomegaly Results & Data Vital Signs (Past 12 Hours) Vital Signs Temp Pulse Resp BP Pulse Ox 09/11/22 07:18 97.7 F 20 09/11/22 02:36 98.2 F 18 09/11/22 07:51 85 90 09/11/22 07:49 88 121/63 100 09/11/22 07:44 76 100 09/11/22 07:39 75 100 09/11/22 07:34 68 16 115/57 L 100 09/11/22 07:29 71 99 09/11/22 07:24 76 100 09/11/22 07:21 59 L 114/66 09/11/22 07:19 75 100 09/11/22 07:16 81 92 09/11/22 07:14 68 100 09/11/22 07:09 79 99 09/11/22 07:00 18 09/11/22 07:00 18 09/11/22 07:04 72 100 09/11/22 07:05 76 103/56 L 09/11/22 06:59 69 100 09/11/22 06:54 70 100 09/11/22 06:49 66 99 09/11/22 06:50 61 116/65 09/11/22 06:44 85 100 09/11/22 06:39 83 100 09/11/22 06:34 78 99 09/11/22 06:35 78 90/55 L 09/11/22 06:29 67 100 09/11/22 06:24 72 98 09/11/22 06:19 66 100 09/11/22 06:14 67 99 09/11/22 06:15 76 91/54 L 09/11/22 06:10 73 88/49 L 09/11/22 06:09 65 98 09/11/22 06:04 65 100 09/11/22 06:05 65 92/54 L 09/11/22 05:59 69 100 09/11/22 06:00 62 18 100/54 L 09/11/22 05:54 63 100 09/11/22 05:55 61 100/52 L 09/11/22 05:50 62 100/51 L 09/11/22 05:49 62 99 09/11/22 05:44 75 100 09/11/22 05:45 62 99/55 L 09/11/22 05:42 63 97/52 L 09/11/22 05:39 73 100 09/11/22 05:34 67 100 09/11/22 05:35 65 98/53 L 09/11/22 05:29 64 100 09/11/22 05:30 63 18 94/50 L 09/11/22 04:45 18 09/11/22 04:45 18 09/11/22 05:24 64 100 09/11/22 05:25 60 96/53 L 09/11/22 05:20 62 95/50 L 09/11/22 05:19 62 100 09/11/22 05:14 62 100 09/11/22 05:15 62 95/50 L 09/11/22 05:11 66 93/51 L 09/11/22 05:09 65 100 09/11/22 05:04 100 09/11/22 05:04 77 09/11/22 05:04 70 95/51 L 09/11/22 05:02 68 93/51 L 09/11/22 04:59 66 100 09/11/22 05:00 65 94/52 L 09/11/22 04:58 64 96/50 L 09/11/22 04:56 67 100/51 L 09/11/22 04:54 72 96/49 L 100 09/11/22 04:52 73 95/55 L 09/11/22 04:50 77 95/55 L 09/11/22 04:49 80 100 09/11/22 04:48 82 91/51 L 09/11/22 04:46 72 92/53 L 09/11/22 04:44 88 102/53 L 99 09/11/22 04:42 76 104/53 L 09/11/22 04:39 95 H 99 09/11/22 04:40 92 H 108/57 L 09/11/22 04:38 97 H 108/60 09/11/22 04:37 91 H 63/36 L 09/11/22 04:36 68 61/28 L 09/11/22 04:34 98 09/11/22 04:34 72 09/11/22 04:34 69 67/29 L 09/11/22 04:32 71 79/42 L 09/11/22 04:33 73 73/40 L 09/11/22 04:29 78 100 09/11/22 04:28 67 107/58 L 09/11/22 04:24 66 100 09/11/22 04:19 68 99 09/11/22 04:14 68 100 09/11/22 04:09 59 L 99 09/11/22 04:04 72 100 09/11/22 03:59 68 100 09/11/22 03:54 62 100 09/11/22 03:49 64 100 09/11/22 03:37 18 09/11/22 03:37 18 09/11/22 03:44 69 99 09/11/22 03:41 64 105/60 09/11/22 03:39 64 98 09/11/22 02:27 76 110/59 L Coding Level of Care Code None Diagnoses Group beta Strep positive B95.1
[2022-09-11] MEDS: lamoTRIgine 100 MG TAB PO SCH ×2 (11:05→23:06)
--- NOTE | 2022-09-11 13:25 | Labor Progress Brief Note ---
Date of Service September 11, 2022 Subjective Late note: Comfortable. FHT Cat 1 [place] Q 2 SVE 4/60/-2 Agreeable for pitocin. Assessment & Plan Admission and Anticipated Discharge Date Admission Date: September 11, 2022 Results & Data Vital Signs (Past 12 Hours) Vital Signs Temp Pulse Resp BP Pulse Ox 09/11/22 07:18 36.5 C 20 09/11/22 02:36 36.8 C 18 09/11/22 13:21 64 115/58 L 09/11/22 13:19 73 98 09/11/22 13:14 64 98 09/11/22 13:09 78 99 09/11/22 13:04 68 112/57 L 99 09/11/22 12:59 71 98 09/11/22 12:54 74 99 09/11/22 12:49 78 99 09/11/22 12:50 82 111/59 L 09/11/22 12:44 108 H 100 09/11/22 12:39 73 100 09/11/22 12:36 36.4 C L 70 16 112/58 L 09/11/22 12:34 70 100 09/11/22 12:29 69 100 09/11/22 12:24 68 100 09/11/22 12:19 85 103/54 L 100 09/11/22 12:14 67 100 09/11/22 12:09 84 100 09/11/22 12:05 70 16 107/57 L 09/11/22 12:04 65 100 09/11/22 11:59 65 98 09/11/22 11:54 78 100 09/11/22 11:51 64 111/58 L 09/11/22 11:49 65 100 09/11/22 11:44 63 100 09/11/22 11:39 61 100 09/11/22 11:34 59 L 99 09/11/22 11:35 67 112/58 L 09/11/22 11:29 79 100 09/11/22 11:24 70 100 09/11/22 11:20 59 L 113/55 L 09/11/22 11:19 59 L 99 09/11/22 11:14 81 100 09/11/22 11:09 69 98 09/11/22 11:04 69 98 09/11/22 11:05 82 116/62 09/11/22 10:59 73 100 07/06/23 10:54 71 100 09/11/22 10:50 62 124/61 09/11/22 10:49 66 98 09/11/22 10:44 61 98 09/11/22 10:39 73 100 09/11/22 10:40 78 93 09/11/22 10:36 56 L 106/53 L 09/11/22 10:34 57 L 100 09/11/22 10:29 36.6 C 67 20 100 09/11/22 10:24 58 L 98 09/11/22 10:19 61 112/59 L 99 09/11/22 10:14 63 100 09/11/22 10:09 67 99 09/11/22 10:04 99 09/11/22 10:04 68 09/11/22 10:04 66 110/55 L 09/11/22 09:59 74 99 09/11/22 09:54 71 98 09/11/22 09:51 73 115/58 L 09/11/22 09:49 64 99 09/11/22 09:44 79 98 09/11/22 09:39 70 95 09/11/22 09:34 74 99 09/11/22 09:35 36.7 C 86 20 106/57 L 09/11/22 09:29 71 100 09/11/22 09:24 72 99 09/11/22 09:20 65 114/57 L 09/11/22 09:19 70 99 09/11/22 09:14 80 99 09/11/22 09:09 70 99 09/11/22 09:04 68 98 09/11/22 09:05 67 117/59 L 09/11/22 08:59 73 99 09/11/22 08:54 67 99 09/11/22 08:49 72 97 09/11/22 08:50 70 122/57 L 09/11/22 08:44 74 99 09/11/22 08:39 69 98 09/11/22 08:35 82 116/61 09/11/22 08:34 82 99 09/11/22 08:30 36.6 C 20 09/11/22 08:29 68 99 09/11/22 08:24 71 99 09/11/22 08:19 71 18 118/58 L 99 09/11/22 08:14 68 100 09/11/22 08:09 74 99 09/11/22 08:04 66 119/60 100 09/11/22 07:59 75 99 09/11/22 07:54 70 100 09/11/22 07:51 85 90 09/11/22 07:49 88 16 121/63 100 09/11/22 07:44 76 100 09/11/22 07:39 75 100 09/11/22 07:34 68 16 115/57 L 100 09/11/22 07:29 71 99 09/11/22 07:24 76 100 09/11/22 07:21 59 L 114/66 09/11/22 07:19 75 100 09/11/22 07:16 81 92 09/11/22 07:14 68 100 09/11/22 07:09 79 99 09/11/22 07:00 18 09/11/22 07:00 18 09/11/22 07:04 72 100 09/11/22 07:05 76 103/56 L 09/11/22 06:59 69 100 09/11/22 06:54 70 100 09/11/22 06:49 66 99 09/11/22 06:50 61 116/65 09/11/22 06:44 85 100 09/11/22 06:39 83 100 09/11/22 06:34 78 99 09/11/22 06:35 78 90/55 L 09/11/22 06:29 67 100 09/11/22 06:24 72 98 09/11/22 06:19 66 100 09/11/22 06:14 67 99 09/11/22 06:15 76 91/54 L 09/11/22 06:10 73 88/49 L 09/11/22 06:09 65 98 09/11/22 06:04 65 100 09/11/22 06:05 65 92/54 L 09/11/22 05:59 69 100 09/11/22 06:00 62 18 100/54 L 09/11/22 05:54 63 100 09/11/22 05:55 61 100/52 L 09/11/22 05:50 62 100/51 L 09/11/22 05:49 62 99 09/11/22 05:44 75 100 09/11/22 05:45 62 99/55 L 09/11/22 05:42 63 97/52 L 09/11/22 05:39 73 100 09/11/22 05:34 67 100 09/11/22 05:35 65 98/53 L 09/11/22 05:29 64 100 09/11/22 05:30 63 18 94/50 L 09/11/22 04:45 18 09/11/22 04:45 18 09/11/22 05:24 64 100 09/11/22 05:25 60 96/53 L 09/11/22 05:20 62 95/50 L 09/11/22 05:19 62 100 09/11/22 05:14 62 100 09/11/22 05:15 62 95/50 L 09/11/22 05:11 66 93/51 L 09/11/22 05:09 65 100 09/11/22 05:04 100 09/11/22 05:04 77 09/11/22 05:04 70 95/51 L 09/11/22 05:02 68 93/51 L 09/11/22 04:59 66 100 09/11/22 05:00 65 94/52 L 09/11/22 04:58 64 96/50 L 09/11/22 04:56 67 100/51 L 09/11/22 04:54 72 96/49 L 100 09/11/22 04:52 73 95/55 L 09/11/22 04:50 77 95/55 L 09/11/22 04:49 80 100 09/11/22 04:48 82 91/51 L 09/11/22 04:46 72 92/53 L 09/11/22 04:44 88 102/53 L 99 09/11/22 04:42 76 104/53 L 09/11/22 04:39 95 H 99 09/11/22 04:40 92 H 108/57 L 09/11/22 04:38 97 H 108/60 09/11/22 04:37 91 H 63/36 L 09/11/22 04:36 68 61/28 L 09/11/22 04:34 98 09/11/22 04:34 72 09/11/22 04:34 69 67/29 L 09/11/22 04:32 71 79/42 L 09/11/22 04:33 73 73/40 L 09/11/22 04:29 78 100 09/11/22 04:28 67 107/58 L 09/11/22 04:24 66 100 09/11/22 04:19 68 99 09/11/22 04:14 68 100 09/11/22 04:09 59 L 99 09/11/22 04:04 72 100 09/11/22 03:59 68 100 09/11/22 03:54 62 100 09/11/22 03:49 64 100 09/11/22 03:37 18 09/11/22 03:37 18 09/11/22 03:44 69 99 09/11/22 03:41 64 105/60 09/11/22 03:39 64 98 09/11/22 02:27 76 110/59 L Coding Level of Care Code None Diagnoses
--- NOTE | 2022-09-11 17:28 | Delivery Summary ---
Vaginal Delivery Summary Date of Service September 11, 2022 Vaginal Delivery Summary and 2nd Degree LAC Vaginal Delivery Summary: Pre-delivery diagnoses: 32yo @ 39 6/7, labor, epilepsy, arnold-chiari malformation, GBS+ Post-delivery diagnoses: same Procedure: spontaneous vaginal delivery Surgeon: Nina Dial DO Complications: none Findings: Viable female . Apgars: 8/9. Weight pending, please see nursery records Estimated blood loss: 300ml Description of delivery: The patient progressed to complete with epidural anesthesia. She then began to push. She spontaneously vaginally delivered a viable from the cephalic presentation. The head delivered in GRIS position. The anterior shoulder delivered, followed by the posterior shoulder, followed by the body. The baby was placed on mother's abdomen and a spontaneous cry was heard. Delayed cord clamping was employed, and the cord was doubly clamped and cut. Cord blood was obtained. The placenta was delivered spontaneously intact with a 3-vessel cord. The uterus and vagina were swept of clots and debris. IV pitocin was given. The uterus became firm. The cervix, vagina, and perineum were inspected and a second degree laceration was noted and repaired with 3-0 Vicryl in standard fashion. Excellent hemostasis was observed. The mother and baby are recovering in stable and good condition in the room. Sponge, needle, and instrument counts were correct x 2. Nina Dial DO [facility] Vaginal Delivery Charge Vaginal Delivery Codes: 24321 global code for the antepartum, delivery, and post- Delivery Type Details: and 2nd Degree LAC
[2022-09-11] MEDS ORDERED: ALBUTEROL HFA 8 GM INHALER INH PRN (17:40)
[2022-09-11] MEDS ORDERED: DIPHTHERIA/TETANUS/PERTUSSIS Vaccine (Tdap, Age 7+yrs) 0.5mL SYR/VL IM ONE (17:40)
[2022-09-11] MEDS ORDERED: HYDROCORTISONE ACETATE 25 MG SUPP PR PRN (17:40)
[2022-09-11] MEDS ORDERED: ACETAMINOPHEN 325 MG TAB PO PRN (17:40)
[2022-09-11] MEDS ORDERED: BENZOCAINE 20% AER SPR 82.5 GM CAN EXT PRN (17:40)
[2022-09-11] MEDS ORDERED: bisacodyL 10 MG SUPP PR PRN (17:40)
--- NOTE | 2022-09-11 17:57 | Anesthesia Procedure Note ---
Date of Service September 11, 2022 Anesthesia Post Epidural Note Vital Signs Vital Signs: Temp Pulse Resp BP Pulse Ox 36.8 C 72 20 106/52 L 97 09/11/22 17:21 09/11/22 17:49 09/11/22 17:35 09/11/22 17:49 09/11/22 17:14 Pain Intensity Abdomen: Pain Intensity: 0 Notes Mental Status: alert / awake / arousable and participated in evaluation Patient Amnestic to Procedure: No Nausea / Vomiting: adequately controlled Pain: adequately controlled Airway Patency, RR, SpO2: stable & adequate BP & HR: stable & adequate Hydration State: stable & adequate Neuraxial Anesthesia: was administered and sensory block is resolving Anesthetic Complications: no major complications apparent and Pt Satisfied with anesthetic care Epidural: Removed without complications and With tip intact
[2022-09-11] MEDS: IBUPROFEN 600 MG TAB PO PRN (18:50)
[2022-09-11] MEDS: DOCUSATE SODIUM 100 MG CAP PO SCH (20:41)
[2022-09-11] MEDS: oxyCODONE/ACETAMINOPHEN 5mg/325mg TAB PO PRN (20:42)
[2022-09-11] MEDS ORDERED: ACETAMINOPHEN 500 MG TAB PO PRN (21:18)
[2022-09-12] MEDS: IBUPROFEN 600 MG TAB PO PRN ×3 (03:44→13:34)
[2022-09-12 06:52] LABS: Hemoglobin 11.2 g/dl (12.0-16.0)
[2022-09-12] MEDS ORDERED: PRENATAL VITAMIN 1 TAB PO SCH (08:00)
[2022-09-12] MEDS: oxyCODONE/ACETAMINOPHEN 5mg/325mg TAB PO PRN ×2 (08:34→13:34)
[2022-09-12] MEDS: DOCUSATE SODIUM 100 MG CAP PO SCH (08:34)
--- NOTE | 2022-09-12 08:51 | Obstetrical Progress Note ---
Date of Service September 12, 2022 Assessment & Plan (1) state: PPD#1 doing well, continue routine care. Subjective Ambulation: ambulating normally Voiding: no voiding problems Diet Tolerance:: regular diet Lochia:: Moderate Review of Systems All systems reviewed & are unremarkable except as noted in HPI & below Physical Exam Constitutional WD/WN, vitals as above no acute distress Respiratory normal respiratory effort Cardiovascular Rate/Rhythm: regular rate and regular rhythm Gastrointestinal (Abdomen) Inspection/Auscultation: abdomen normal to inspection; abdomen not distended Percussion/Palpation: abdomen soft Genitourinary OB Exam Abdomen: + fundal height Fundus: + firm; not tender Results & Data Vital Signs (Past 12 Hours) Vital Signs Temp Pulse Resp BP Pulse Ox O2 Del Method 09/12/22 03:37 36.7 C 78 20 113/63 99 Room Air 09/11/22 23:13 36.7 C 67 18 113/63 Room Air
[2022-09-12] MEDS ORDERED: LORATADINE 10 MG TAB PO SCH (09:00)
[2022-09-12] MEDS: lamoTRIgine 100 MG TAB PO SCH (10:49)
--- NOTE | 2022-09-12 17:41 | Communication Note ---
Date of Service: September 12, 2022 called by nursing that pt wanted to go home today and no order in place. I placed order and did dc instructions page and then recalled by nursing that pt was expecting percocet script to go home, she felt that this was discussed with off-going md this am. she feels she needs due to bottom sore and hip pain and has h/o hemorrhoids. aware it is constipating and we rec ibuprofen and tylenol for pp pain. i did speak with off-going md who did feel pt misunderstood use of percocet as outpt and also was not expecting pt to want to go home today so thought she was just going to use for her inpt stay. i explained all to pt and that outpt script atypical. sent script with above se precautions. checked on pa-pdmp. offered pt to stay as inpt longer due to her pain but she declines that. she is meeting her routine dc goals and is bottle feeding baby. dc is written, script sent, pt and partner aware.
[2022-09-12] MEDS ORDERED: bisacodyL 5 MG TABEC PO SCH (20:00)
== END 2022-09-12 19:25 | disposition home or self-care (01) | DRG 805 ==
LOC: OPB 02:07 → 4S1 02:12 → 4E2 20:07